=== PATIENT | female | born 1940 | race Caucasian/White ===

== ENCOUNTER 2017-11-09 10:18 | Emergency (ER) | payer OTHER, SELFPAY ==
[~2017-11-09] VITALS: Ht 165.1 cm; Wt 86.6 kg
[~2017-11-09 10:18] MED LIST: ACET325 PO; AMLO10 PO; AMLO5 PO; ASPI325 PO; ASPI81CH PO; ASPI81EC; AVANDAMET; CIPR500 PO; CLON.2 PO; CLON1 PO; CLOP75; ERGO400 PO; FERR325; FISH1000 PO; FURO20 PO; FURO40 PO; GABA100 PO; GLIM2 PO; HYDACE5 PO; INS70/30PN SC; INSUASPI; INSUASPI SUBQ; INSULANI; INSULANI SC; INSULANI SUBQ; IRBHYD150; ISOMON30 PO; ISOMON60ER; Isosorbide Mono30 MG PO; LEVEMIR FL100 UNIT/1 SC; LEVO750 PO; LOSA50 PO; LOSARTAN/HCTZ PO; LOSHYD PO; LOVA20 PO; METF500 PO; METO100 PO; METO100ER PO; METO50ER; NITRSPRAY SL; ONDA8 PO; POTCHL10ER PO; PRAV20 PO; PREG75 PO; Poly-Iron150 MG PO; SIMV40; SPIR25 PO; ST JOHNS WORT; UBID10 PO; XARELTO20 MG PO; [UNRECOGNIZED DRUG - OTHER] PO; hyzaar
[2017-11-09] MEDS ORDERED: PREG75 PO (11:42)
[2017-11-09] MEDS ORDERED: AURYXIA PO (11:42)
[2017-11-09 11:44] LABS: BASOPHILS ABSOLUTE AUTO 0.01 K/mm3 (0.00-0.23); BASOPHILS PERCENT AUTO 0 % (0-2); EOSINOPHILS ABSOLUTE AUTO 0.42 K/mm3 (0.00-0.68); EOSINOPHILS PERCENT AUTO 4 % (0-6); Hematocrit 34.2 % (33.0-51.0); Hemoglobin 11.2 g/dL (11.5-16.0); IMMATURE GRAN ABSOLUTE AUTO 0.03 K/mm3 (0.00-0.10); IMMATURE GRAN PERCENT AUTO 0 % (0-1); LYMPHOCYTES ABSOLUTE AUTO 1.06 K/mm3 (0.84-5.20); LYMPHOCYTES PERCENT AUTO 11 % (21-46); MONOCYTES ABSOLUTE AUTO 0.74 K/mm3 (0.16-1.47); MONOCYTES PERCENT AUTO 8 % (4-13); Mean Corpuscular HGB 27.6 pg (26.0-34.0); Mean Corpuscular HGB Conc 32.7 g/dL (31.5-36.5); Mean Corpuscular Volume 84 fL (80-100); Mean Platelet Volume 9.5 fL (9.1-12.4); NEUTROPHILS ABSOLUTE AUTO 7.49 K/mm3 (1.96-9.15); NEUTROPHILS PERCENT AUTO 77 % (41-73); Platelet Count 395 K/mm3 (150-400); RDW Coefficient Variation 13.5 % (11.7-14.2); RDW Standard Deviation 40.8 fL (35.1-46.3); Red Blood Cell Count 4.06 M/mm3 (3.80-5.20); White Blood Cell Count 9.75 K/mm3 (4.00-11.30)
[2017-11-09 11:55] LABS: Alanine Aminotransfer (ALT/SGP 12 U/L (12-78); Albumin, Blood 3.1 g/dL (3.4-5.0); Albumin/Globulin Ratio 0.7 (0.8-1.8); Alk Phos 127 U/L (50-136); Anion Gap 6 mmol/L (6-16); Aspartate Aminotrans (AST/SGOT 13 U/L (12-37); Bilirubin, Total 0.3 mg/dL (0.1-1.0); Blood Urea Nitrogen 35 mg/dL (8-24); Bun/Creatinine Ratio 37.7 (12.0-20.0); CO2, Blood 32 mmol/L (21-32); Calcium, Blood 8.8 mg/dL (8.5-10.1); Chloride, Blood 90 mmol/L (98-108); Creatinine, Blood 0.93 mg/dL (0.40-1.00); Globulin, Blood 4.4 g/dL (2.2-4.0); Glomerular Filtration Rate >60 (60-); Glucose, Blood 197 mg/dL (70-99); Sodium, Blood 128 mmol/L (136-145); Total Protein, Blood 7.5 g/dL (6.4-8.2)
[2018-09-09] MEDS ORDERED: DILT120 PO (15:50)
[2018-09-09] MEDS ORDERED: CLON.1 PO (15:50)
[2018-09-10] MEDS ORDERED: Norco 5-325 Ta1 EACH PO (18:24)
== END 2017-11-09 12:53 | disposition home or self-care (01) ==
LOC: ER 10:18
PROVIDERS: Emergency Medicine
DX: R93.5 Abnormal findings on diagnostic imaging of other abdominal regions, including retroperitoneum (principal); D64.9 Anemia, unspecified; E87.1 Hypo-osmolality and hyponatremia; E11.9 Type 2 diabetes mellitus without complications; I11.0 Hypertensive heart disease with heart failure; I50.9 Heart failure, unspecified; Z87.891 Personal history of nicotine dependence; Z88.5 Allergy status to narcotic agent; Z88.8 Allergy status to other drugs, medicaments and biological substances; Z79.899 Other long term (current) drug therapy; Z79.82 Long term (current) use of aspirin
CPT/HCPCS: 80053; 85025; 99283

== ENCOUNTER 2017-12-18 18:52 | Emergency (ER) | payer OTHER, SELFPAY ==
[~2017-12-18] VITALS: Ht 165.1 cm; Wt 85.7 kg
[~2017-12-18 18:52] MED LIST changes: -CLON.1 PO; -DILT120 PO; -Norco 5-325 Ta1 EACH PO; -VITAMIN B12-FO1 EACH PO
[2017-12-18] MEDS ORDERED: GLIM2 PO (19:25)
[2017-12-18] MEDS ORDERED: METF500 PO (19:26)
[2017-12-18] MEDS ORDERED: VITAMIN B12-FO1 EACH PO (19:27)
[2017-12-18 20:34] LABS: BASOPHILS ABSOLUTE AUTO 0.02 K/mm3 (0.00-0.23); BASOPHILS PERCENT AUTO 0 % (0-2); EOSINOPHILS ABSOLUTE AUTO 0.31 K/mm3 (0.00-0.68); EOSINOPHILS PERCENT AUTO 3 % (0-6); Hematocrit 31.4 % (33.0-51.0); Hemoglobin 10.3 g/dL (11.5-16.0); IMMATURE GRAN ABSOLUTE AUTO 0.05 K/mm3 (0.00-0.10); IMMATURE GRAN PERCENT AUTO 0 % (0-1); LYMPHOCYTES ABSOLUTE AUTO 1.04 K/mm3 (0.84-5.20); LYMPHOCYTES PERCENT AUTO 9 % (21-46); MONOCYTES ABSOLUTE AUTO 1.15 K/mm3 (0.16-1.47); MONOCYTES PERCENT AUTO 9 % (4-13); Mean Corpuscular HGB 27.2 pg (26.0-34.0); Mean Corpuscular HGB Conc 32.8 g/dL (31.5-36.5); Mean Corpuscular Volume 83 fL (80-100); Mean Platelet Volume 9.6 fL (9.1-12.4); NEUTROPHILS ABSOLUTE AUTO 9.71 K/mm3 (1.96-9.15); NEUTROPHILS PERCENT AUTO 79 % (41-73); Platelet Count 370 K/mm3 (150-400); RDW Coefficient Variation 13.4 % (11.7-14.2); RDW Standard Deviation 40.3 fL (35.1-46.3); Red Blood Cell Count 3.78 M/mm3 (3.80-5.20); White Blood Cell Count 12.28 K/mm3 (4.00-11.30)
[2017-12-18 20:38] LABS: Albumin, Blood 3.4 g/dL (3.4-5.0); Albumin/Globulin Ratio 0.8 (0.8-1.8); Bilirubin, Total 0.3 mg/dL (0.1-1.0); Bun/Creatinine Ratio 38.5 (12.0-20.0); Calcium, Blood 9.1 mg/dL (8.5-10.1); Creatinine, Blood 1.04 mg/dL (0.40-1.00); Globulin, Blood 4.4 g/dL (2.2-4.0); Potassium, Blood 3.8 mmol/L (3.5-5.5); Total Protein, Blood 7.8 g/dL (6.4-8.2)
[2017-12-18 20:45] LABS: International Normalized Ratio 1.38; Prothrombin Time Results 14.5 Sec (9.7-11.5)
[2018-09-09] MEDS ORDERED: DILT120 PO (15:50)
[2018-09-09] MEDS ORDERED: CLON.1 PO (15:50)
[2018-09-10] MEDS ORDERED: Norco 5-325 Ta1 EACH PO (18:24)
== END 2017-12-18 21:41 | disposition home or self-care (01) ==
LOC: ER 18:52
PROVIDERS: Nurse Practitioner Family
DX: D72.829 Elevated white blood cell count, unspecified (principal); Z88.5 Allergy status to narcotic agent; Z88.8 Allergy status to other drugs, medicaments and biological substances; Z79.899 Other long term (current) drug therapy; Z79.84 Long term (current) use of oral hypoglycemic drugs; Z79.82 Long term (current) use of aspirin; I11.0 Hypertensive heart disease with heart failure; I50.9 Heart failure, unspecified; E11.9 Type 2 diabetes mellitus without complications; Z87.891 Personal history of nicotine dependence
CPT/HCPCS: 36415; 71046; 80053; 83605; 85025; 85610; 87040; 99283

== ENCOUNTER → 2017-12-18 | Outpatient (CLI) | payer OTHER, SELFPAY ==
[~2017-12-18] MED LIST changes: +AURYXIA PO; +CLON.1 PO; +DILT120 PO; +Norco 5-325 Ta1 EACH PO; +VITAMIN B12-FO1 EACH PO
[2017-12-18 11:18] LABS: Source, Urine Voided
[2017-12-18 11:41] LABS: Bilirubin, Urine Neg (Neg); Blood, Urine Neg (Neg); Glucose Qualitative, Urine Neg (Neg); Ketones, Urine Neg (Neg); Leukocyte Esterase, Urine 1+ (Neg); Nitrite, Urine Neg (Neg); Protein, Urine Neg (Neg); Specific Gravity, Urine 1.005 (1.003-1.022); Urobilinogen, Urine NORM (Normal)
[2017-12-18 11:46] LABS: Color, Urine Yellow (P-Yellow)
[2017-12-18 11:47] LABS: Appearance, Urine Clear (Clear)
[2017-12-18 11:49] LABS: Bacteria Not Seen /hpf; Red Blood Cells, Urine Not Seen /hpf (0-2); Squamous Epithelial Cells Few /hpf (Few); White Blood Cells, Urine 0-2 /hpf (0-5)
== END ==
LOC: LAB SHORT 11:17
PROVIDERS: Internal Medicine
DX: R78.81 Bacteremia (principal)
CPT/HCPCS: 81001

== ENCOUNTER 2017-12-20 15:44 | Emergency (ER) | payer OTHER, SELFPAY ==
[~2017-12-20] VITALS: Ht 165.1 cm; Wt 85.7 kg
[~2017-12-20 15:44] MED LIST changes: +VITAMIN B12-FO1 EACH PO
[2017-12-20 16:47] LABS: BASOPHILS ABSOLUTE AUTO 0.03 K/mm3 (0.00-0.23); BASOPHILS PERCENT AUTO 0 % (0-2); EOSINOPHILS ABSOLUTE AUTO 0.31 K/mm3 (0.00-0.68); EOSINOPHILS PERCENT AUTO 3 % (0-6); Hematocrit 32.1 % (33.0-51.0); Hemoglobin 10.3 g/dL (11.5-16.0); IMMATURE GRAN ABSOLUTE AUTO 0.03 K/mm3 (0.00-0.10); IMMATURE GRAN PERCENT AUTO 0 % (0-1); LYMPHOCYTES ABSOLUTE AUTO 1.58 K/mm3 (0.84-5.20); LYMPHOCYTES PERCENT AUTO 16 % (21-46); MONOCYTES ABSOLUTE AUTO 0.78 K/mm3 (0.16-1.47); MONOCYTES PERCENT AUTO 8 % (4-13); Mean Corpuscular HGB 26.8 pg (26.0-34.0); Mean Corpuscular HGB Conc 32.1 g/dL (31.5-36.5); Mean Corpuscular Volume 84 fL (80-100); Mean Platelet Volume 9.3 fL (9.1-12.4); NEUTROPHILS PERCENT AUTO 72 % (41-73); Platelet Count 376 K/mm3 (150-400); RDW Coefficient Variation 13.5 % (11.7-14.2); RDW Standard Deviation 41.2 fL (35.1-46.3); Red Blood Cell Count 3.84 M/mm3 (3.80-5.20); White Blood Cell Count 9.73 K/mm3 (4.00-11.30)
[2018-09-09] MEDS ORDERED: DILT120 PO (15:50)
[2018-09-09] MEDS ORDERED: CLON.1 PO (15:50)
[2018-09-10] MEDS ORDERED: Norco 5-325 Ta1 EACH PO (18:24)
== END 2017-12-20 17:09 | disposition home or self-care (01) ==
LOC: ER 15:44
PROVIDERS: Internal Medicine
DX: E66.9 Obesity, unspecified (principal); Z59.0 Homelessness; Z88.5 Allergy status to narcotic agent; Z88.8 Allergy status to other drugs, medicaments and biological substances; Z79.899 Other long term (current) drug therapy; Z79.84 Long term (current) use of oral hypoglycemic drugs; Z79.82 Long term (current) use of aspirin; I11.0 Hypertensive heart disease with heart failure; I50.9 Heart failure, unspecified; E11.9 Type 2 diabetes mellitus without complications; Z87.891 Personal history of nicotine dependence
CPT/HCPCS: 36415; 85025; 99283

== ENCOUNTER → 2018-01-25 | Outpatient (CLI) | payer OTHER, SELFPAY ==
[~2018-01-25] MED LIST changes: +CLON.1 PO; +DILT120 PO; +Norco 5-325 Ta1 EACH PO
== END | disposition home or self-care (01) ==
LOC: LAB 11:50
DX: E53.8 Deficiency of other specified B group vitamins (principal)
CPT/HCPCS: 82607; 82746

== ENCOUNTER 2019-03-04 00:29 | Day surgery (SDC) | payer OTHER ==
[~2019-03-04 00:29] MED LIST changes: +GLIM4 PO; +INSULANPEN SC; +Novolog100 UNIT/2 SC; +PROBIOTIC1 EAC1 PO
== END 2019-03-04 22:39 | disposition home or self-care (01) ==
LOC: ATC 00:29
DX: I12.9 Hypertensive chronic kidney disease with stage 1 through stage 4 chronic kidney disease, or unspecified chronic kidney disease (principal); E11.22 Type 2 diabetes mellitus with diabetic chronic kidney disease; N18.3 Chronic kidney disease, stage 3 (moderate); D63.1 Anemia in chronic kidney disease; I25.10 Atherosclerotic heart disease of native coronary artery without angina pectoris; I25.2 Old myocardial infarction; I48.0 Paroxysmal atrial fibrillation; E78.5 Hyperlipidemia, unspecified; Z88.5 Allergy status to narcotic agent; Z88.8 Allergy status to other drugs, medicaments and biological substances; Z79.899 Other long term (current) drug therapy; Z79.82 Long term (current) use of aspirin; Z79.4 Long term (current) use of insulin
CPT/HCPCS: 36415; 36430; 86850; 86900; 86901; 86923; 96374; 96375; J1940; J2405; J7050; P9016

== ENCOUNTER → 2019-04-18 | Outpatient (CLI) | payer OTHER ==
[2019-04-18 16:18] LABS: Percent Saturation 15.8 % (15.0-50.0)
== END | disposition home or self-care (01) ==
LOC: LAB SHORT 15:44 → LAB 15:44
PROVIDERS: Internal Medicine Hematology & Oncology
DX: D50.0 Iron deficiency anemia secondary to blood loss (chronic) (principal)
CPT/HCPCS: 83540; 83550

== ENCOUNTER 2019-05-24 02:01 | Inpatient (IN) | payer OTHER ==
[~2019-05-24] VITALS: Ht 165.1 cm; Wt 78.2 kg
[2019-05-24] MEDS ORDERED: MAGNESIUM400 MG PO (02:30)
[2019-05-24 03:28] LABS: BASOPHILS ABSOLUTE AUTO 0.02 K/mm3 (0.00-0.23); BASOPHILS PERCENT AUTO 0 % (0-2); EOSINOPHILS ABSOLUTE AUTO 0.46 K/mm3 (0.00-0.68); EOSINOPHILS PERCENT AUTO 4 % (0-6); Hematocrit 27.2 % (33.0-51.0); Hemoglobin 8.6 g/dL (11.5-16.0); IMMATURE GRAN ABSOLUTE AUTO 0.05 K/mm3 (0.00-0.10); IMMATURE GRAN PERCENT AUTO 0 % (0-1); LYMPHOCYTES ABSOLUTE AUTO 1.21 K/mm3 (0.84-5.20); LYMPHOCYTES PERCENT AUTO 10 % (21-46); MONOCYTES ABSOLUTE AUTO 1.13 K/mm3 (0.16-1.47); MONOCYTES PERCENT AUTO 9 % (4-13); Mean Corpuscular HGB 28.1 pg (26.0-34.0); Mean Corpuscular HGB Conc 31.6 g/dL (31.5-36.5); Mean Corpuscular Volume 89 fL (80-100); Mean Platelet Volume 10.7 fL (9.1-12.4); NEUTROPHILS ABSOLUTE AUTO 9.48 K/mm3 (1.96-9.15); NEUTROPHILS PERCENT AUTO 77 % (41-73); Platelet Count 287 K/mm3 (150-400); RDW Coefficient Variation 15.2 % (11.7-14.2); RDW Standard Deviation 49.4 fL (35.1-46.3); Red Blood Cell Count 3.06 M/mm3 (3.80-5.20); White Blood Cell Count 12.35 K/mm3 (4.00-11.30)
[2019-05-24 03:42] LABS: Alanine Aminotransfer (ALT/SGP 13 U/L (12-78); Albumin, Blood 2.8 g/dL (3.4-5.0); Albumin/Globulin Ratio 0.8 (0.8-1.8); Alk Phos 120 U/L (50-136); Anion Gap 7 mmol/L (6-16); Aspartate Aminotrans (AST/SGOT 7 U/L (12-37); Bilirubin, Total 0.2 mg/dL (0.1-1.0); Blood Urea Nitrogen 42 mg/dL (8-24); Bun/Creatinine Ratio 39.6 (12.0-20.0); CO2, Blood 27 mmol/L (21-32); Chloride, Blood 96 mmol/L (98-108); Creatinine, Blood 1.06 mg/dL (0.40-1.00); Globulin, Blood 3.7 g/dL (2.2-4.0); Glomerular Filtration Rate 53 (60-); Glucose, Blood 213 mg/dL (70-99); Magnesium, Blood 1.7 mg/dL (1.6-2.4); Sodium, Blood 130 mmol/L (136-145); Total Protein, Blood 6.5 g/dL (6.4-8.2); Troponin I <0.015 ng/mL (0.000-0.040)
[2019-05-24 03:44] LABS: International Normalized Ratio 1.09; Prothrombin Time Results 11.5 Sec (9.7-11.5)
[2019-05-24 05:38] LABS: Source, Urine Clean Catch
[2019-05-24 05:39] LABS: Bilirubin, Urine Neg (Neg); Blood, Urine Neg (Neg); Glucose Qualitative, Urine 1+ (Neg); Ketones, Urine Neg (Neg); Leukocyte Esterase, Urine Neg (Neg); Nitrite, Urine Neg (Neg); Protein, Urine 2+ (Neg); Urobilinogen, Urine NORM (Normal)
[2019-05-24 05:44] LABS: Appearance, Urine Clear (Clear); Color, Urine Pale Yellow (P-Yellow)
[2019-05-24 05:46] LABS: Bacteria Few /hpf; Red Blood Cells, Urine Not Seen /hpf (0-2); Squamous Epithelial Cells Rare /hpf (Few); White Blood Cells, Urine 0-2 /hpf (0-5)
--- NOTE | 2019-05-24 07:39 | NUR ---
RECEIVED REPORT FROM ED RN MELVINA AT APPROX 0736. PT'S BP 202/82. MELVINA REPORTS THE PT WILL BE GIVEN PRN HYDRALAZINE PRIOR TO LEAVING THE ED. REPORT HANDED OFF TO MARK DEXTER TO ASSUME CARE OF PT ON MEDICAL FLOOR.
[2019-05-24 10:21] LABS: BASOPHILS ABSOLUTE AUTO 0.02 K/mm3 (0.00-0.23); BASOPHILS PERCENT AUTO 0 % (0-2); EOSINOPHILS ABSOLUTE AUTO 0.15 K/mm3 (0.00-0.68); EOSINOPHILS PERCENT AUTO 1 % (0-6); Hematocrit 28.7 % (33.0-51.0); IMMATURE GRAN ABSOLUTE AUTO 0.05 K/mm3 (0.00-0.10); IMMATURE GRAN PERCENT AUTO 0 % (0-1); LYMPHOCYTES ABSOLUTE AUTO 1.11 K/mm3 (0.84-5.20); LYMPHOCYTES PERCENT AUTO 9 % (21-46); MONOCYTES ABSOLUTE AUTO 0.85 K/mm3 (0.16-1.47); MONOCYTES PERCENT AUTO 7 % (4-13); Mean Corpuscular HGB 27.4 pg (26.0-34.0); Mean Corpuscular HGB Conc 31.4 g/dL (31.5-36.5); Mean Corpuscular Volume 88 fL (80-100); Mean Platelet Volume 10.5 fL (9.1-12.4); NEUTROPHILS ABSOLUTE AUTO 10.02 K/mm3 (1.96-9.15); NEUTROPHILS PERCENT AUTO 82 % (41-73); Platelet Count 265 K/mm3 (150-400); RDW Coefficient Variation 15.3 % (11.7-14.2); RDW Standard Deviation 49.4 fL (35.1-46.3); Red Blood Cell Count 3.28 M/mm3 (3.80-5.20)
[2019-05-24] MEDS ORDERED: Flonase 0.05% N16 GM (12:39)
--- NOTE | 2019-05-24 17:07 | NUR ---
REMOVED LAC FIELD START IV CATHETER INTACT SITE WNL. COBAN AND GAUZE APPLIED.
--- NOTE | 2019-05-24 18:48 | NUR ---
SHIFT SUMMARY OX4. STANDBY ASSIST TO BATHROOM. GOLYTELY IN PROGRESS FOR COLONOSCOPY TOMORROW AT APPROX 8:30AM. HX OF COLON RESECTION. PLEASANT COOPERATIVE. REPORTS "IT'S POSSIBLE I WILL NOT BE ABLE TO FINISH ALL OF THE PREP I JUST CAN'T TOLERATE THAT MUCH FLUID" REPORTED TO DR. CANCINO. QUITE HTN ON ARRIVAL FROM E.D. NOW VS WNL. DENIES ANY PAIN.
--- NOTE | 2019-05-25 00:54 | NUR ---
Pt unable to drink all of golitely prep. Pt very nauseated. Pt up to bathroom every 5-10 minutes. Pt having some blood with every stool but otherwise all liquid stools. Pt bp was 228/96 at beginning of shift. Gave pt her blood pressure meds and hydrazaline as ordered. BP recheck at 2200 was 190/62. notifed and no further orders recieved.
--- NOTE | 2019-05-25 03:50 | NUR ---
Shift summary: Pt undergoing a go-litely prep for a colonoscopy in am 2nd to GI bleed. Pt could only tolerate about 2/3 of golitely prep. Pt up to be often. Pt also bleeding each time she is up to BR. No fecal material in bowel movements noted. Pt c/o nausea and lightheadedness and states that she can't drink anymore of the bowel prep. Blood pressure high last pm. 228/96. After getting her pm meds and hydralazine, her bp was 190/62. notified and no further orders recieved.
[2019-05-25 05:03] LABS: Hematocrit 24.7 % (33.0-51.0); Hemoglobin 7.8 g/dL (11.5-16.0); Mean Corpuscular HGB 27.3 pg (26.0-34.0); Mean Corpuscular HGB Conc 31.6 g/dL (31.5-36.5); Mean Corpuscular Volume 86 fL (80-100); Mean Platelet Volume 10.3 fL (9.1-12.4); Platelet Count 255 K/mm3 (150-400); RDW Coefficient Variation 15.5 % (11.7-14.2); RDW Standard Deviation 48.8 fL (35.1-46.3); Red Blood Cell Count 2.86 M/mm3 (3.80-5.20); White Blood Cell Count 7.66 K/mm3 (4.00-11.30)
[2019-05-25 05:29] LABS: Anion Gap 7 mmol/L (6-16); Blood Urea Nitrogen 24 mg/dL (8-24); Bun/Creatinine Ratio 28.7 (12.0-20.0); CO2, Blood 28 mmol/L (21-32); Calcium, Blood 8.3 mg/dL (8.5-10.1); Chloride, Blood 105 mmol/L (98-108); Creatinine, Blood 0.84 mg/dL (0.40-1.00); Glomerular Filtration Rate >60 (60-); Glucose, Blood 66 mg/dL (70-99); Potassium, Blood 3.4 mmol/L (3.5-5.5)
[2019-05-25 05:49] LABS: Sodium, Blood 140 mmol/L (136-145)
--- NOTE | 2019-05-25 07:16 | NUR ---
Shift summary. See prior note. Around 0545 pt started c/o chest pain at a level 5 out of 10. Pt very anxious and stated that the pain was going up her neck.O2 on at 4 liters. BP was 148/50 after getting hydrazaline. Bp before 215/65. Dr Reyes called. Blood sugar was 66. Gave pt 1/2 amp D50. Ekg obtained. Changes noted and MD notifed. Pt given one nitro tab with some relief. Blood ordered for transfusion. Nitro paste applied to chest. Trop ordered and aspirin 325 also given. Report given to oncoming nurse. Pt scheduled for colonoscopy at 0900. Bowel movements last pm were all bloody. H & H 7 and 24 this am.
--- NOTE | 2019-05-25 07:21 | NUR ---
SPOKE WITH DR. CAICEDO REPORTED PT'S CP, HYPOGLYCEMIA AND VS. NEW ORDERS RECEIVED. DR. CAICEDO TO SEE PATIENT AT BEDSIDE SHORTLY.
--- NOTE | 2019-05-25 07:36 | NUR ---
SPOKE WITH DR. LEYVA ABOUT PT'S CP, H&H AND OVERALL CONDITION. NEW ORDERS RECEIVED FOR CARDIAC CONSULT AND TO POSTPONE COLONOSCOPY.
--- NOTE | 2019-05-25 07:59 | NUR ---
PRBC'S IN PROGRESS. PT REPORTS CP IMPROVED FROM 05/21 TO NOW 5/10 NITROPASTE TO CHESTWALL. 2 EPISODES OF BLOOD TINGED WATERY BM THIS A.M. C/O LOWER BACK PAIN. MEDICATED WITH FENTYNL PT STATES "UNABLE TO TOLERATE IV MORPHINE".
--- NOTE | 2019-05-25 08:08 | NUR ---
PAGED DR. PATEL
--- NOTE | 2019-05-25 09:59 | NUR ---
TRANSFERRED PT TO ICU VIA STRETCHER. AWAKE ALERT OX4; REPORT GIVEN TO MARK ARNETT
--- NOTE | 2019-05-25 12:09 | NUR ---
0915: PT TO ICU 5 AT THIS TIME, A&OX4, TRANSFERRED FROM BED TO BED WITH SBA, GAIT STEADY. CARDIAC MONITORING INITIATED, AFIB WITH PVC'S, TACHYCARDIC, BP ELEVATED. PT DENIES CHEST PAIN/PRESSURE AND SOB, SPO2 100% 2L/NC. PRBC'S INFUSING PER ORDERS, PT AFEBRILE. NITRO PASTE TO LEFT CHEST. ASSESSMENT COMPLETED. 1030: PT UP TO C WITH SBA, VOIDING WITHOUT DIFFICULTY. SMALL AMOUNT OF MENG BLOOD PRESENT IN COMMODE, NO CLOTS NOTED. MEDICATIONS ADMINISTERED PER ORDERS. DR. CHACKO AT BEDSIDE. 1100: ECHO COMPLETED, PRBC INFUSION COMPLETED WITHOUT S/SX TRANSFUSION REACTION. LS DIM WITH RIGHT SIDED WHEEZES, NO CRACKLES NOTED, PT DENIES SOB AND CP/PAIN. HR REMAINS TACHYCARDIC, BP ELEVATED. 1130: PT MEDICATED WITH TYLENOL FOR 3/10 MID UPPER BACK PAIN. PT'S SISTER AT BEDSIDE. 1210: PT C/O 3/10 CP, HR 130-150'S AFIB WITH PVC'S. DR. CHACKO NOTIFIED, NEW ORDERS RECEIVED. PT ASLEEP UPON RETURN TO ROOM. CLEAR DIET OK PER DR. LEYVA AND DR. CHACKO. BP WNL.
--- NOTE | 2019-05-25 12:20 | NUR ---
Echocardiogram completed.
--- NOTE | 2019-05-25 12:38 | NUR ---
AMIODARONE INFUSING PER ORDERS, HR 113 AFTER BOLUS, PT DENIES CHEST PRESSURE. SECOND IV PLACED IN LEFT HAND. PT ASSISTED TO BSC WITHOUT DIFICULTY, SCANT AMOUNT OF BLOOD FROM RECTUM. APPETITE POOR, REFUSED MOST OF LUNCH TRAY. PT DENIES ABD PAIN/NAUSEA.
--- NOTE | 2019-05-25 13:13 | NUR ---
LATE ENTRY: NITRO PASTE REMOVED AT [address] PATEL.
--- NOTE | 2019-05-25 13:40 | NUR ---
PT CONVERTED TO NSR WITH ST DEPRESSION AT 1319. PT SLEEPING, HR 60'S, OTHER VSS.
[2019-05-25 14:03] LABS: Hemoglobin 8.9 g/dL (11.5-16.0)
--- NOTE | 2019-05-25 17:56 | NUR ---
1440: PT RESTING IN BED WITH EYES CLOSED, VSS, REMAINS IN NSR 60'S, BP WNL. CRITICAL TROPONIN RECEIVED, COMMUNICATED TO DR. PATEL, NO NEW ORDERS AT THIS TIME, INSTRUCTIONS TO CONTINUE AMIODARONE PER PROTOCOL. 1530: DR. LEYVA AT BEDSIDE, AWARE OF TROPONIN AND DR. PATEL'S DECISION TO HOLD HEPARIN, NEW ORDERS RECEIVED FOR NPO AFTER BREAKFAST TOMORROW AM AND TO HOLD ALL FURTHER BOWEL PREP. PT AWAKE, DENIES CHEST PAIN/DISCOMFORT, VSS. PT AWARE OF PLAN. 1730: PT WOKEN FOR MEDS AND DINNER, DENIES C/O, VS REMAIN STABLE WITH HR 60'S NSR. AMIODARONE INFUSING AT 1MG/HR PER ORDERS. PT SITTING UP IN BED EATING, DENIES NEEDS.
--- NOTE | 2019-05-25 18:49 | NUR ---
AMIODARONE INFUSING AT 0.5MG/HR PER DR. PATEL, PT RESTING IN BED WITH NO C/O. HR 60'S NSR, PT DENIES CHEST PAIN/PRESSURE/DISCOMFORT AND SOB. NO BLOODY STOOLS TODAY, SCANT MENG BLOOD FROM RECTUM X2 WHEN PT WAS UP TO VOID. PT DENIES DIZZINESS OR LIGHTHEADEDNESS, VSS. REPORT TO ONCOMING SHIFT. PT REMAINS ON CLEAR LIQ DIET, TOLERATING WELL.
--- NOTE | 2019-05-25 19:37 | NUR ---
ASSUMED CARE RECIEVED REPORT FROM MELQUIADES. PT IS ALERT AND ORIENTED X 4. DENIES CP, SOB, N/T, NAUSEA, AND ANY PAIN IN GENERAL. PT IS IN NSR, AND IS RECIEVING AMIO GTTP AT 0.5MG/MIN. BED IS LOW AND LOCKED. CALL LIGHT WITHIN REACH.
--- NOTE | 2019-05-26 07:53 | NUR ---
SHIFT SUMMARY NO ACUTE EVENTS OVERNIGHT. PT SLEPT ASLEEP MAJORITY OF NIGHT, GOT UP TO BATHROOM WITH 1+ ASSIST TWICE THROUGHOUT NIGHT. VOIDED INTO TOILET, SLIGHT DARK RED/ORANGE TINT TO URINE. PT IS TO HAVE ENDOSCOPY TODAY. NO BOWEL PREP NEEDED OVERNIGHT (COMPLETED ONCE ALREADY) AND PT IS TO BE NPO PRIOR TO PROCEDURE (WAS ON CLEAR LIQUIDS THROUGHOUT NIGHT). AMIODARONE GTTP REMAINS INFUSING AT 0.5MG/MIN; PT REMAINS IN NSR. BED IS LOW AND LOCKED, CALL LIGHT WITHIN REACH.
--- NOTE | 2019-05-26 08:30 | NUR ---
ASSESSMENT- PT AWAKE, ALERT, COOPERATIVE. STATES HAVING SCOPE TODAY. EXPLAINED PLAN OF CARE. HYPERTENSIVE, DENIES ANY CP OR SOB. RESPIRATIONS UNLABORED. AMIODARONE GTT AT 0.5 MG/MIN. NSR NO ECTOPY. LUNGS CLEAR. NO N/V. 2 PIV INTACT.
[2019-05-26 08:40] LABS: Hematocrit 27.8 % (33.0-51.0); Hemoglobin 8.8 g/dL (11.5-16.0); Mean Corpuscular HGB 27.8 pg (26.0-34.0); Mean Corpuscular HGB Conc 31.7 g/dL (31.5-36.5); Mean Corpuscular Volume 88 fL (80-100); Mean Platelet Volume 9.7 fL (9.1-12.4); Platelet Count 252 K/mm3 (150-400); RDW Coefficient Variation 15.3 % (11.7-14.2); RDW Standard Deviation 49.5 fL (35.1-46.3); Red Blood Cell Count 3.17 M/mm3 (3.80-5.20); White Blood Cell Count 8.85 K/mm3 (4.00-11.30)
--- NOTE | 2019-05-26 09:00 | NUR ---
ASSISTED UP TO TOILET-TOLERATED WELL, USES WALKER FOR STABILITY AND STAND BY ASSIST. AM CARES. NO STOOL. HAD CLEAR LIQUID CHICKEN BROTH THIS AM. NPO NOW.
[2019-05-26 09:08] LABS: Bun/Creatinine Ratio 20.8 (12.0-20.0); Calcium, Blood 8.3 mg/dL (8.5-10.1); Creatinine, Blood 0.96 mg/dL (0.40-1.00); Potassium, Blood 3.8 mmol/L (3.5-5.5)
[2019-05-26 09:13] LABS: Troponin I 5.95 ng/mL (0.000-0.040)
--- NOTE | 2019-05-26 10:15 | NUR ---
DR. LEYVA CALLED-NOTIFIED THAT DR. PATEL OK WITH PROCEDURE. HE WILL DISCUSS WITH ANESTHESIA. OK FOR CLEAR LIQUID LUNCH, NPO AFTER. PT DENIES COMPLAINTS
--- NOTE | 2019-05-26 10:50 | NUR ---
PT RESTING WITHOUT COMPLAINTS. BP ELEVATED, HAD RECEIVED MEDS FOR BLOOD PRESSURE, WILL MONITOR
--- NOTE | 2019-05-26 13:19 | NUR ---
PT UP TO BATHROOM-VOIDED 450 CC AFTER DOSE OF IV LASIX. C/O TENDERNESS LEFT HAND-IV D/C, HEATING PAD FOR COMFORT, NO SWELLING OR INFILTRATION NOTED. BP WITHIN 10 MMHG LEFT ARM AND RIGHT ARM. USING LEFT WRIST FOR BP, UNABLE TO TOLERATE RIGHT UPPER ARM MEASUREMENTS AND NEW IV SITE RFA.
--- NOTE | 2019-05-26 14:52 | NUR ---
Pal Spiritual Care inital visit: Per admit trigger, I met with Ольга to offer prayer and encouragement. She was emotionally distant and said very little to me. She denied prayer and appeared bewildered that a coin machine collector was present. I gently explained that I try to see every ICU pt, and this calmed her. She believes she is getting better and denied concerns. I will remain available.
--- NOTE | 2019-05-26 16:01 | NUR ---
DR. LEYVA HERE-PLANS FOR UPPER AND LOWER SCOPE IN A.M. AT 0700. PT ALERT, COOPERATIVE, DENIES ANY CHEST PAIN OR SOB. VISITING WITH FAMILY. NO DISTRESS PALLIATIVE CARE RN HERE. BP IMPROVED FROM THIS A.M. HAS USED HEATING PAD FOR DISCOMFORT FROM LEFT HAND WITH IMPROVEMENT OF TENDERNESS.
--- NOTE | 2019-05-26 16:03 | NUR ---
Initial Visit: Palliative Care Consult for Advanced Care Planning. Pt is A&O and denies pain at this time. Pt denies dyspnea but reports anxiety due to anticipation of procedure. Educated Pt on distraction techniques to help manage anxiety. Family present during visit. Pt reports living with her and is independent of her ADLs. Listened as she describes events leading up to current hospital stay. Encouraged Pt to ask questions and express concerns regarding chronic illnesses and disease process. Pt reports no concerns. Educated Pt on the importance of having routine conversations with PCP and secure software assessor regarding heart disease in order to plan accordingly. At this point in visit Gastro MD in to visit. Plan if for procedure tomorrow. This RN ended visit to allow Pt the oppertunity to process information. Spoke with bedside nurse prior to visit and she reports no concerns at this time. Palliative Care will remain available.
--- NOTE | 2019-05-26 18:15 | NUR ---
PT UP TO CHAIR WITHOUT PROBLEMS. UPDATED WITH PLAN-AGREEABLE. TOOK CLEAR LIQUIDS. NO N/V, DENIES ANY PAIN OR SOB. VSS. NO S/S BLEEDING. PIV X 2 INTACT. STATES LEFT HAND LESS TENDER, NO SWELLING, SMALL AMOUNT BRUISING BOTH HANDS, SKIN THIN. VOIDING-GOOD URINE OUTPUT. REMAINS NSR. AMIODARONE GTT CONTINUES AT 0.5 MG/MIN PER ORDERS
--- NOTE | 2019-05-26 22:46 | NUR ---
PATIENT RESTING QUIETLY UP TO TOILET WITH MIN ASSIST. NO COMPLAINTS AT THIS TIME. AMIODARONE DRIP CONTINUES AT 0.5 UNTIL FURTHER ORDERS.
[2019-05-27 03:43] LABS: Bun/Creatinine Ratio 17.2 (12.0-20.0); Calcium, Blood 8.3 mg/dL (8.5-10.1); Creatinine, Blood 0.99 mg/dL (0.40-1.00); Magnesium, Blood 1.7 mg/dL (1.6-2.4)
--- NOTE | 2019-05-27 04:32 | NUR ---
PATIENT GLUCOSE ON AM LAB 51. SNACK OF CLEAR YELLOW JELLO AND A YELLOW JELLO + RECHECK GLUCOSE 95, PATIENT VERBALIZED THAT THIS IS LOW FOR HER ALSO, PATIENT TAKING A SMALL AMT OF HONEY. PATIENT AWAKE AND VERBALIZED NOT FEELING LIKE SHE IS LOW
--- NOTE | 2019-05-27 05:39 | NUR ---
SUMMARY PATIENT SLEEPING OFF AND ON T/O NIGHT. AMB TO TOILET WITH MIN ASSIST. PATIENT HAD A SMALL AMT OF BRIGHT RED ON TOILET PAPER FROM RECTUM. H&H REMAINING STABLE. GLUCOSE LOW THIS AM RESOLVING WITH CLEAR LIQUID SNACK. AMIODARONE DRIP CONTINUES AT 0.5, REMAINS IN SINUS RHYTHM. PLAN FOR UPPER AND LOWER SCOPE TODAY.
--- NOTE | 2019-05-27 06:45 | NUR ---
DAY SURGERY IN TO PREP PATIENT FOR SCOPE
--- NOTE | 2019-05-27 07:14 | NUR ---
ASSUMED CARE OF PT AT THIS TIME PT. CURRENTLY ALERT AND ORIENTED. PT CURRENTLY BEING PREPPED BY DAY SURGERY NURSES FOR UPPER AND LOWER SCOPE. PT. VSS AT THIS TIME.
--- NOTE | 2019-05-27 07:18 | NUR ---
05/27/19 0718 Laura Krishnamurthy History, Chart, Medications and Allergies reviewed before start of procedure.MONITOR INTACT WITH CONTINUOUS PULSE OXIMETRY AND INTERMITTENT BP.3-LEAD EKG REVIEWED WITH PHYSICIAN PRIOR TO START OF PROCEDURE.O2 VIA N/C INTACT THROUGHOUT SEDATION/PROCEDURE. MODERATE SEDATION DUE TO HEALTH HISTRORY
--- NOTE | 2019-05-27 08:34 | NUR ---
PROCEDURE COMPLETED PT. ALERT AND ORIENTED. AM CARE PROVIDED. BREAKFAST TRAY ORDERED PER DR. LEYVA. PER DR. LEYVA NO ACUTE BLEEDING NOTED DURING PROCEDURE. VSS.
--- NOTE | 2019-05-27 12:21 | NUR ---
DR. PATEL/DR. CALEB PATEL ROUNDED ON PT. STATES HE WILL SWITCH PT TO PO AMIODARONE AND SHE IS OK FOR DISCHARGE FROM CARDIOLOGY STANDPOINT. HE WOULD LIKE HER TO FOLLOW UP IN HIS OFFICE IN A WEEK. DR. ELLIS UPDATED AND WILL WRITE DISCHARGE ORDERS.
[2019-05-27] MEDS ORDERED: CLON.1 PO (12:50)
[2019-05-27] MEDS ORDERED: Isosorbide Mono30 MG PO (12:51)
[2019-05-27] MEDS ORDERED: Amiodarone HCl200 MG PO (12:51)
[2019-05-27 12:52] LABS: BASOPHILS ABSOLUTE AUTO 0.02 K/mm3 (0.00-0.23); BASOPHILS PERCENT AUTO 0 % (0-2); EOSINOPHILS ABSOLUTE AUTO 0.09 K/mm3 (0.00-0.68); EOSINOPHILS PERCENT AUTO 1 % (0-6); Hematocrit 30.9 % (33.0-51.0); Hemoglobin 9.7 g/dL (11.5-16.0); IMMATURE GRAN ABSOLUTE AUTO 0.03 K/mm3 (0.00-0.10); IMMATURE GRAN PERCENT AUTO 0 % (0-1); LYMPHOCYTES ABSOLUTE AUTO 0.45 K/mm3 (0.84-5.20); LYMPHOCYTES PERCENT AUTO 5 % (21-46); MONOCYTES ABSOLUTE AUTO 0.32 K/mm3 (0.16-1.47); MONOCYTES PERCENT AUTO 3 % (4-13); Mean Corpuscular HGB 28.1 pg (26.0-34.0); Mean Corpuscular HGB Conc 31.4 g/dL (31.5-36.5); Mean Corpuscular Volume 90 fL (80-100); NEUTROPHILS ABSOLUTE AUTO 8.39 K/mm3 (1.96-9.15); NEUTROPHILS PERCENT AUTO 90 % (41-73); Platelet Count 278 K/mm3 (150-400); RDW Coefficient Variation 14.9 % (11.7-14.2); RDW Standard Deviation 49.3 fL (35.1-46.3); Red Blood Cell Count 3.45 M/mm3 (3.80-5.20)
[2019-05-27] MEDS ORDERED: AMLO5 PO (13:01)
[2019-05-27] MEDS ORDERED: CLOP75 PO (13:02)
--- NOTE | 2019-05-27 15:24 | NUR ---
DISCHARGE PT. DISCHARGE INSTRUCTIONS REVIEWED. MEDICATION CHANGES REVIEWED. NO FURTHER QUESTIONS AT THIS TIME. PT. VSS. ASSISTED PT TO GET DRESSED AT THIS TIME. PT. USING WALKER TO STAND, REPORTS FEELING WEAK BUT REPORTS FEELING STEADY ON HER FEET. AWAITING FOR RIDE HOME. FOLLOW UP APPOINTMENTS DISCUSSED WITH PT. BELONGINGS RETURNED. IVS DC'D; CATHETERS INTACT.
--- NOTE | 2019-05-27 15:42 | NUR ---
PT. HERE TO DRIVE PT HOME.
== END 2019-05-27 15:30 | disposition home or self-care (01) | DRG 378 ==
LOC: ER 02:01 → MEDS 02:02 → ICUE 02:02 → MEDS 02:02 → ICUE 02:02 → MEDS 08:58 → ICUE 05-25 09:15
PROVIDERS: Emergency Medicine; Internal Medicine; Internal Medicine Cardiovascular Disease; Internal Medicine Gastroenterology; ADMIT Hospitalist
PROC: 30233N1 Transfusion of Nonautologous Red Blood Cells into Peripheral Vein, Percutaneous Approach (ICD-10-PCS; principal; 2019-05-25)
PROC: 0DB68ZX Excision of Stomach, Via Natural or Artificial Opening Endoscopic, Diagnostic (ICD-10-PCS; 2019-05-27 07:00)
PROC: 0DBH8ZX Excision of Cecum, Via Natural or Artificial Opening Endoscopic, Diagnostic (ICD-10-PCS; 2019-05-27 07:00)
PROC: 0DBN8ZX Excision of Sigmoid Colon, Via Natural or Artificial Opening Endoscopic, Diagnostic (ICD-10-PCS; 2019-05-27 07:00)
DX: K92.2 Gastrointestinal hemorrhage, unspecified (principal); D62 Acute posthemorrhagic anemia; I25.110 Atherosclerotic heart disease of native coronary artery with unstable angina pectoris; E87.1 Hypo-osmolality and hyponatremia; I13.0 Hypertensive heart and chronic kidney disease with heart failure and stage 1 through stage 4 chronic kidney disease, or unspecified chronic kidney disease; I50.22 Chronic systolic (congestive) heart failure; K52.9 Noninfective gastroenteritis and colitis, unspecified; K25.9 Gastric ulcer, unspecified as acute or chronic, without hemorrhage or perforation; K57.30 Diverticulosis of large intestine without perforation or abscess without bleeding; D50.9 Iron deficiency anemia, unspecified; I70.1 Atherosclerosis of renal artery; E11.22 Type 2 diabetes mellitus with diabetic chronic kidney disease; N18.3 Chronic kidney disease, stage 3 (moderate); E78.5 Hyperlipidemia, unspecified; I25.2 Old myocardial infarction; I48.0 Paroxysmal atrial fibrillation; Z79.82 Long term (current) use of aspirin; Z79.4 Long term (current) use of insulin; Z86.73 Personal history of transient ischemic attack (TIA), and cerebral infarction without residual deficits; Z98.61 Coronary angioplasty status; Z87.891 Personal history of nicotine dependence; Z79.899 Other long term (current) drug therapy; Z79.01 Long term (current) use of anticoagulants; Z88.5 Allergy status to narcotic agent; Z88.8 Allergy status to other drugs, medicaments and biological substances
CPT/HCPCS: 36415; 36430; 80048; 80053; 81001; 82947; 83690; 83735; 84484; 85014; 85018; 85025; 85027; 85610; 86850; 86900; 86901; 86923; 88305; 88342; 93005; 93010; 93306; 96365; 96366; 96375; 96376; 99284-25; A9270; C9113; G0378; J0171; J0282; J0360; J1940; J2250; J2405; J3010; J3480; J7030; J7050; J7060; J7120; J7799; P9016

== ENCOUNTER 2021-06-21 08:57 | Day surgery (SDC) | payer OTHER ==
[~2021-06-21] VITALS: Ht 165.1 cm; Wt 85.0 kg
[~2021-06-21 08:57] MED LIST changes: +Amiodarone HCl200 MG PO; +Aspir 8181 MG PO; +CLOP75 PO; +Flonase 0.05% N16 GM; +MAGNESIUM400 MG PO
[2021-06-21] MEDS ORDERED: TIOT18 INH (09:12)
[2021-06-21] MEDS ORDERED: ATROVENT HFA12.9 GM INH (09:13)
[2021-06-21] MEDS ORDERED: ERGO50000 PO (09:13)
--- NOTE | 2021-06-21 15:18 | NUR ---
PT BECAME DIAPHORETIC AND STATED SHE FELT AWFUL. THE PT BECAME HYPOTENSIVE. DR. GRAHAM MADE AWARE AND CAME TO ASSESS THE PATIENT. CT WAS ORDERED AND FLUIDS WIDE OPEN. DR. GRAHAM ORERED A STRAIGHT CATH TO BE PERFORMED. STRAIGHT CATH WAS PERFOMRED IN A STERILE MATTER AND 700CC'S OF CLEAR YELLOW URINE WAS VOIDED. WILL CONTINUE TO MONITOR.
--- NOTE | 2021-06-21 16:24 | NUR ---
PT BACK FROM CT. THIS NURSE WENT WITH PT TO CT. PT'S VITALS HAVE STABALIZED, THE PT'S COLOR IS BACK AND THE PT STATES SHE FEELS BETTER.
--- NOTE | 2021-06-21 17:30 | NUR ---
DISCHARGE PT REMAINED A&OX3 DURING RECOVERY. PT'W ELEVATED BLOOD PRESSURE WAS REVIEWED WITH DR. GRAHAM. DR. GRAHAM STATED- "HAVE THE PT GO HOME AND TAKE HOME MEDS RIGHT AWAY AND MEDICATIONS WILL BE REVIEWED AT FOLLOW-UP APPOINTMENT." RIGHT GROIN SITE REMAINS UNCHANGED FROM LAST HOLD FROM HEMATOMA. BRUISE NOTED FROM OUTTER THIGH TO INNER THIGH.-DRESSING CDI-SOFT SLIGHT TENDERNESS TO TOUCH. PT BECAME NAUSEOUS-NAUSIA RELIEVED BY SALTINES AND WATER. PT ABLE TO DRESS SELF WITH SOME ASSITANCE. IV DC'D WITH ARIANNE IN TACT. DISCHARGE PAPERWORK GONE OVER WITH PT AND SON-N-LAW. PT AND SON-N-LAW VERBALLY STATED THE UNDERSTANDING OF THE DISCHARGE PAPERWORK AND VERBALLY DENIED ANY QUESTIONS AT TIME. PT WHEELD OUT BY THIS NURSE.
== END 2021-06-21 23:31 | disposition home or self-care (01) ==
LOC: MHTC 08:57
DX: I70.1 Atherosclerosis of renal artery (principal); I10 Essential (primary) hypertension; K55.9 Vascular disorder of intestine, unspecified; I11.0 Hypertensive heart disease with heart failure; I50.9 Heart failure, unspecified; E11.9 Type 2 diabetes mellitus without complications; Z88.8 Allergy status to other drugs, medicaments and biological substances
CPT/HCPCS: 36252; 37221; 37236; 74176; 75726; 76937; 82947; 85347; 99152; 99153; C1760; C1769; C1876; C1887; C1894; C2623; J2250; J3010; J7030; Q9967

== ENCOUNTER 2021-06-28 06:14 | Emergency (ER) | payer OTHER ==
[~2021-06-28] VITALS: Ht 165.1 cm; Wt 83.9 kg
[~2021-06-28 06:14] MED LIST changes: +ATROVENT HFA12.9 GM INH; +ERGO50000 PO; +TIOT18 INH
[2021-06-28 06:48] LABS: BASOPHILS ABSOLUTE AUTO 0.03 K/mm3 (0.00-0.23); BASOPHILS PERCENT AUTO 0 % (0-2); EOSINOPHILS ABSOLUTE AUTO 0.56 K/mm3 (0.00-0.68); EOSINOPHILS PERCENT AUTO 6 % (0-6); Hemoglobin 11.8 g/dL (11.5-16.0); IMMATURE GRAN ABSOLUTE AUTO 0.02 K/mm3 (0.00-0.10); IMMATURE GRAN PERCENT AUTO 0 % (0-1); LYMPHOCYTES ABSOLUTE AUTO 1.24 K/mm3 (0.84-5.20); LYMPHOCYTES PERCENT AUTO 13 % (21-46); MONOCYTES ABSOLUTE AUTO 0.97 K/mm3 (0.16-1.47); MONOCYTES PERCENT AUTO 10 % (4-13); Mean Corpuscular HGB 28.2 pg (26.0-34.0); Mean Corpuscular HGB Conc 33.7 g/dL (31.5-36.5); Mean Corpuscular Volume 84 fL (80-100); Mean Platelet Volume 9.8 fL (9.1-12.4); NEUTROPHILS ABSOLUTE AUTO 7.03 K/mm3 (1.96-9.15); NEUTROPHILS PERCENT AUTO 71 % (41-73); Platelet Count 370 K/mm3 (150-400); RDW Coefficient Variation 14.1 % (11.7-14.2); RDW Standard Deviation 42.6 fL (35.1-46.3); Red Blood Cell Count 4.19 M/mm3 (3.80-5.20); White Blood Cell Count 9.85 K/mm3 (4.00-11.30)
[2021-06-28 06:49] LABS: Source, Urine Clean Catch
[2021-06-28 06:57] LABS: Bilirubin, Urine Neg (Neg); Blood, Urine 2+ (Neg); Glucose Qualitative, Urine 4+ (Neg); Ketones, Urine Neg (Neg); Leukocyte Esterase, Urine 3+ (Neg); Nitrite, Urine Neg (Neg); Protein, Urine 3+ (Neg); Specific Gravity, Urine 1.005 (1.003-1.022); Urobilinogen, Urine NORM (Normal)
[2021-06-28 07:08] LABS: Alanine Aminotransfer (ALT/SGP 23 U/L (12-78); Albumin/Globulin Ratio 0.7 (0.8-1.8); Alk Phos 123 U/L (50-136); Anion Gap 7 mmol/L (6-16); Aspartate Aminotrans (AST/SGOT 18 U/L (12-37); Bilirubin, Total 0.7 mg/dL (0.1-1.0); Blood Urea Nitrogen 21 mg/dL (8-24); Bun/Creatinine Ratio 26.5 (12.0-20.0); CO2, Blood 27 mmol/L (21-32); Calcium, Blood 8.6 mg/dL (8.5-10.1); Chloride, Blood 92 mmol/L (98-108); Creatinine, Blood 0.79 mg/dL (0.40-1.00); Globulin, Blood 4.3 g/dL (2.2-4.0); Glomerular Filtration Rate >60 (60-); Glucose, Blood 272 mg/dL (70-99); Potassium, Blood 3.8 mmol/L (3.5-5.5); Sodium, Blood 126 mmol/L (136-145); Total Protein, Blood 7.3 g/dL (6.4-8.2); Troponin I <0.015 ng/mL (0.000-0.040)
[2021-06-28 07:16] LABS: Appearance, Urine Clear (Clear); Color, Urine Yellow (P-Yellow)
[2021-06-28 07:19] LABS: Bacteria Many /hpf; White Blood Cells, Urine 25-50 /hpf (0-5)
[2021-06-28 07:20] LABS: Red Blood Cells, Urine 0-2 /hpf (0-2); Squamous Epithelial Cells Rare /hpf (Few); Transitional Epithelial Cells Rare /hpf (0-Rare)
[2021-06-28] MEDS ORDERED: METF500 PO (07:40)
[2021-06-28] MEDS ORDERED: CEFP200 PO (08:32)
[2021-06-28] MEDS ORDERED: ONDA4ODT MM (08:32)
== END 2021-06-28 10:44 | disposition home or self-care (01) ==
LOC: ER 06:14
PROVIDERS: Emergency Medicine
DX: N39.0 Urinary tract infection, site not specified (principal); E87.1 Hypo-osmolality and hyponatremia; R11.2 Nausea with vomiting, unspecified; B95.1 Streptococcus, group B, as the cause of diseases classified elsewhere; I13.0 Hypertensive heart and chronic kidney disease with heart failure and stage 1 through stage 4 chronic kidney disease, or unspecified chronic kidney disease; N18.30 Chronic kidney disease, stage 3 unspecified; I50.9 Heart failure, unspecified; E86.0 Dehydration; E11.22 Type 2 diabetes mellitus with diabetic chronic kidney disease; Z88.8 Allergy status to other drugs, medicaments and biological substances; Z88.5 Allergy status to narcotic agent; Z79.899 Other long term (current) drug therapy; Z79.02 Long term (current) use of antithrombotics/antiplatelets; Z79.4 Long term (current) use of insulin; Z79.82 Long term (current) use of aspirin; Z96.0 Presence of urogenital implants
CPT/HCPCS: 80053; 81001; 84484; 85025; 87086; 87147; 93005; 93010; 99285-25; J0696; J2405; J7030

== ENCOUNTER 2021-08-15 00:29 | Inpatient (IN) | payer OTHER ==
[~2021-08-15] VITALS: Ht 165.1 cm; Wt 79.0 kg
[~2021-08-15 00:29] MED LIST changes: +CEFP200 PO; +ONDA4ODT MM
[2021-08-15 01:00] LABS: Calcium, Ionized (POC) 1.11 mmol/L (1.10-1.46); Chloride (POC) 95 mmol/L (98-108); Creatinine (POC) 0.8 mg/dL (0.6-1.0); Glucose (ISTAT POC) 179 mg/dL (70-99); Hemoglobin (POC) 11.2 g/dL (12.0-16.0); Potassium (POC) 2.6 mmol/L (3.5-5.5); Sodium (POC) 135 mmol/L (135-148); Total CO2 (POC) 26 mmol/L (21-32)
[2021-08-15 01:04] LABS: Hematocrit 34.4 % (33.0-51.0); Hemoglobin 11.4 g/dL (11.5-16.0); Mean Corpuscular HGB 29.1 pg (26.0-34.0); Mean Corpuscular HGB Conc 33.1 g/dL (31.5-36.5); Mean Corpuscular Volume 88 fL (80-100); Mean Platelet Volume 9.8 fL (9.1-12.4); Platelet Count 257 K/mm3 (150-400); RDW Coefficient Variation 14.2 % (11.7-14.2); RDW Standard Deviation 45.5 fL (35.1-46.3); Red Blood Cell Count 3.92 M/mm3 (3.80-5.20); White Blood Cell Count 7.42 K/mm3 (4.00-11.30)
[2021-08-15 01:22] LABS: Magnesium, Blood 1.2 mg/dL (1.6-2.4); Troponin I 0.087 ng/mL (0.000-0.040)
[2021-08-15 01:23] LABS: Alanine Aminotransfer (ALT/SGP 14 U/L (12-78); Albumin, Blood 2.5 g/dL (3.4-5.0); Albumin/Globulin Ratio 0.7 (0.8-1.8); Alk Phos 77 U/L (50-136); Anion Gap 8 mmol/L (6-16); Aspartate Aminotrans (AST/SGOT 13 U/L (12-37); Bilirubin, Total 0.3 mg/dL (0.1-1.0); Blood Urea Nitrogen 12 mg/dL (8-24); Bun/Creatinine Ratio 13.4 (12.0-20.0); CO2, Blood 28 mmol/L (21-32); Calcium, Blood 8.4 mg/dL (8.5-10.1); Chloride, Blood 101 mmol/L (98-108); Creatinine, Blood 0.89 mg/dL (0.40-1.00); Globulin, Blood 3.6 g/dL (2.2-4.0); Glomerular Filtration Rate >60 (60-); Glucose, Blood 173 mg/dL (70-99); Potassium, Blood 2.6 mmol/L (3.5-5.5); Sodium, Blood 137 mmol/L (136-145); Total Protein, Blood 6.1 g/dL (6.4-8.2)
[2021-08-15 01:45] LABS: PCO2 Arterial 44.4 mmHg (35-45); PO2 Arterial 87.4 mmHg (80-100)
[2021-08-15 02:01] LABS: SARS-Cov-2 (COVID-19) PCR, MMC NEGATIVE (NEGATIVE)
--- NOTE | 2021-08-15 03:15 | NUR ---
ARRIVED TO ICU7 FROM SAFETY SITTER PATIENT ARRIVED TO ICU7 FROM SAFETY SITTER POST PCI ON ROOM AIR W/ SPO2 88-93%; 2LPM NC APPLIED W/ SPO2 IMPROVEMENT TO 99-100%. TR BAND TO RT RADIAL ACCESS SITE W/ 13CC AIR PER SAFETY SITTER STAFF. NO BLEEDING OR HEMATOMA PRESENT AT SITE, BUT BRUISING IS PRESENT UNDERNEATH TR BAND THAT HAS BEEN THERE SINCE PROCEDURE PER SAFETY SITTER STAFF. PATIENT IN SR W/ RATE IN 70'S-80'S. SBP ELEVATED 170'S-200'S. PATIENT DENIES CHEST PAIN AT THIS TIME. PATIENT IS HARD OF HEARING, BUT ABLE TO ANSWER AND ASK QUESTIONS APPROPRIATELY. NS INF @ 125ML/HR TO LT FOREARM 20G IV; 20G IV TO LT WRIST.
[2021-08-15 04:07] LABS: BASOPHILS ABSOLUTE AUTO 0.03 K/mm3 (0.00-0.23); BASOPHILS PERCENT AUTO 0 % (0-2); EOSINOPHILS ABSOLUTE AUTO 0.12 K/mm3 (0.00-0.68); EOSINOPHILS PERCENT AUTO 1 % (0-6); Hematocrit 34.1 % (33.0-51.0); Hemoglobin 11.1 g/dL (11.5-16.0); IMMATURE GRAN ABSOLUTE AUTO 0.02 K/mm3 (0.00-0.10); IMMATURE GRAN PERCENT AUTO 0 % (0-1); LYMPHOCYTES ABSOLUTE AUTO 0.84 K/mm3 (0.84-5.20); LYMPHOCYTES PERCENT AUTO 9 % (21-46); MONOCYTES PERCENT AUTO 5 % (4-13); Mean Corpuscular HGB Conc 32.6 g/dL (31.5-36.5); Mean Corpuscular Volume 89 fL (80-100); NEUTROPHILS PERCENT AUTO 84 % (41-73); Platelet Count 246 K/mm3 (150-400); RDW Coefficient Variation 14.2 % (11.7-14.2); RDW Standard Deviation 45.8 fL (35.1-46.3); Red Blood Cell Count 3.83 M/mm3 (3.80-5.20); White Blood Cell Count 9.21 K/mm3 (4.00-11.30)
[2021-08-15 04:25] LABS: Alanine Aminotransfer (ALT/SGP 16 U/L (12-78); Albumin, Blood 2.5 g/dL (3.4-5.0); Albumin/Globulin Ratio 0.7 (0.8-1.8); Alk Phos 72 U/L (50-136); Anion Gap 10 mmol/L (6-16); Aspartate Aminotrans (AST/SGOT 57 U/L (12-37); Bilirubin, Total 0.4 mg/dL (0.1-1.0); Blood Urea Nitrogen 12 mg/dL (8-24); Bun/Creatinine Ratio 14.7 (12.0-20.0); CHOL/HDL RATIO 2.8; CO2, Blood 25 mmol/L (21-32); Calcium, Blood 8.3 mg/dL (8.5-10.1); Chloride, Blood 101 mmol/L (98-108); Cholesterol 141 mg/dL (50-200); Creatinine, Blood 0.82 mg/dL (0.40-1.00); Globulin, Blood 3.6 g/dL (2.2-4.0); Glomerular Filtration Rate >60 (60-); Glucose, Blood 205 mg/dL (70-99); HDL Cholesterol 51 mg/dL (>39); LDL/HDL RATIO 1.5; Low Density Lipoprotein Chol 76 mg/dL (0-110); Potassium, Blood 3.1 mmol/L (3.5-5.5); Sodium, Blood 136 mmol/L (136-145); Total Protein, Blood 6.1 g/dL (6.4-8.2); Triglycerides 69 mg/dL (30-160); Very Low Density Lipoprot Chol 13 mg/dL (6-32)
[2021-08-15 04:37] LABS: Prothrombin Time Results 11.5 Sec (9.7-11.5)
--- NOTE | 2021-08-15 06:38 | NUR ---
SHIFT SUMMARY PATIENT BEGAN HAVING RUNS OF VTACH THIS MORNING; SEE RHYTHM STRIPS. MAG SULFATE AND KCL REPLACEMENTS INFUSING. TR BAND STILL IN PLACE TO LT RADIAL W/ NO BLEEDING OR HEMATOMA PRESENT AT SITE; BRUISING PRESENT UNDER TR BAND THAT HAS REMAINED STABLE. DECREASED DEFLATION SCHEDULE D/T HIGH PTT; 1CC Q 20-30MIN. PATIENT ON 2LPM NC W/ SPO2 REMAINING GREATER THAN 95%. PATIENT REMAINED ORIENTED AND EASILY AROUSABLE FROM SLEEP. PATIENT STILL DENIES CHEST PAIN. NO OTHER MAJOR CHANGES DURING SHIFT.
[2021-08-15 08:10] LABS: Potassium, Blood 3.9 mmol/L (3.5-5.5)
[2021-08-15 08:12] LABS: Troponin I 45.6 ng/mL (0.000-0.040)
[2021-08-15 13:53] LABS: Magnesium, Blood 1.6 mg/dL (1.6-2.4)
[2021-08-15 13:59] LABS: Potassium, Blood 3.2 mmol/L (3.5-5.5); Troponin I 47.1 ng/mL (0.000-0.040)
--- NOTE | 2021-08-15 17:08 | NUR ---
SHIFT SUMMARY: PT CONTINUES A&O T/OUT SHIFT, ABLE TO USE CALL LIGHT APPROPRIATELY. O2 FLOW TITRATED TO ROOM AIR, PT TOLERATES WELL, MAINTAINING O2 SATS >93%. PT CONTINUES IN SR W/PVC AND A FEW RUNS OF VTACH, STRIPS PLACED IN CHART, PT DENIES CHEST PAIN/PRESSURE AND/OR SOB T/OUT THE DAY. PT MEDICATED FOR HTN PER EMAR. R RADIAL TR BAND REMOVED APPROX 1330, TRANSPARENT BANDAGE IN PLACE, BRUISING PATTERN APPEARS UNCHANGED T/OUT SHIFT. PT UP 2x TO RESTROOM W/SBA. PT TOLERATES WELL, NEEDS CONSTANT REMINDING TO NOT USE HER RIGHT ARM SO EXTENSIVELY. PT ADMISSION STATUS HAS BEEN CHANGED TO PCU. NS w/KCL INFUSION CONTINUES W/OUT INCIDENT. WILL CONTINUE TO MONITOR AND TREAT ACCORDINGLY UNTIL CHANGE OF SHIFT.
[2021-08-16 05:34] LABS: BASOPHILS ABSOLUTE AUTO 0.02 K/mm3 (0.00-0.23); BASOPHILS PERCENT AUTO 0 % (0-2); EOSINOPHILS ABSOLUTE AUTO 0.13 K/mm3 (0.00-0.68); EOSINOPHILS PERCENT AUTO 2 % (0-6); Hematocrit 33.8 % (33.0-51.0); Hemoglobin 10.9 g/dL (11.5-16.0); IMMATURE GRAN ABSOLUTE AUTO 0.03 K/mm3 (0.00-0.10); IMMATURE GRAN PERCENT AUTO 0 % (0-1); LYMPHOCYTES ABSOLUTE AUTO 0.98 K/mm3 (0.84-5.20); LYMPHOCYTES PERCENT AUTO 11 % (21-46); MONOCYTES ABSOLUTE AUTO 0.66 K/mm3 (0.16-1.47); MONOCYTES PERCENT AUTO 8 % (4-13); Mean Corpuscular HGB 28.8 pg (26.0-34.0); Mean Corpuscular HGB Conc 32.2 g/dL (31.5-36.5); Mean Corpuscular Volume 89 fL (80-100); NEUTROPHILS PERCENT AUTO 79 % (41-73); Platelet Count 242 K/mm3 (150-400); RDW Coefficient Variation 14.7 % (11.7-14.2); Red Blood Cell Count 3.78 M/mm3 (3.80-5.20); White Blood Cell Count 8.82 K/mm3 (4.00-11.30)
--- NOTE | 2021-08-16 09:30 | NUR ---
AM NOTE ASSUMED CARE OF PATIENT AT APPROX 0700. RIGHT RADIAL SITE WITH FRESH BLOOD UNDER OPSITE, HELD PRESSURE, CLEANED AND REPLACED OPSITE. NO FURTHER BLEEDING NOTED. BRUISING NOTED SURROUNDING INSERTION SITE. PT ALERT, ORIENTED x3; CALM AND COOPERATIVE WITH CARE. [place]. PT REPORTS GENERALIZED TENDERNESS, STATES SHE HAS HAD THIS SINCE A PROCEDURE A COUPLE WEEKS AGO. PT DENIES CHEST PAIN, SOB, NASUEA, DIZZINESS AND NUMBNESS AND TINGLING. SPO2 >90% ON RA, TITRATED FROM 2L O2 THIS AM. PT HAD SHORT RUN OF VTACH ASSYMPTOMATIC, NOTIFIED DR HOLGUIN, NO NEW ORDERS. OTHER VSS. NO OTHER ACUTE CHANGES NOTED. WILL CONTINUE TO MONITOR.
[2021-08-16 11:55] LABS: Anion Gap 4 mmol/L (6-16); Blood Urea Nitrogen 8 mg/dL (8-24); Bun/Creatinine Ratio 11.3 (12.0-20.0); CO2, Blood 24 mmol/L (21-32); Calcium, Blood 8.3 mg/dL (8.5-10.1); Chloride, Blood 107 mmol/L (98-108); Creatinine, Blood 0.71 mg/dL (0.40-1.00); Glomerular Filtration Rate >60 (60-); Glucose, Blood 228 mg/dL (70-99); Magnesium, Blood 1.4 mg/dL (1.6-2.4); Potassium, Blood 3.8 mmol/L (3.5-5.5); Sodium, Blood 135 mmol/L (136-145)
--- NOTE | 2021-08-16 15:33 | NUR ---
DR PATEL AT BEDSIDE NOTIFIED OF VTACH THIS AM AND CONTINUED HTN WITH PRN MEDICATION GIVEN. NEW ORDERED ENTERED. PLANS TO STAY ANOTHER NIGHT AND MONITOR. PER DR PATEL WILL NEED TO FOLLOW UP OUTPATIENT FOR ADDIIONAL PROCEDURE.
--- NOTE | 2021-08-16 17:32 | NUR ---
SHIFT SUMMARY MEDICATED PT WITH NEW DOSE OF COREG, PT HAVING ANOTHER RUN OF VTACH. ELEVATED BP NOTED. WILL CONTINUE TO MONITOR. OTHER VSS. UP TO CHAIR THIS AFTERNOON. RIGHT RADIAL SITE DRESSING CHANGED AGAIN. NO OTHER ACUTE CHANGES NOTED FROM PREVOUS ASSESSMENT. WILL CONTINUE TO MONITOR UNTIL REPORT GIVEN TO ONCOMING RN.
--- NOTE | 2021-08-17 02:32 | NUR ---
CHEST PAIN PT CALLED COMPLAINING OF SHARP AND INTENSE CHEST PAIN. RATED 10/10, NOT GOING AWAY, AT WHICH TIME PT WAS IN AND OUT OF VTACH, SINUS TACH WITH PAC'S/PVC'S. PRN FENTANYL GIVEN, AND EKG DONE RESULTING EXPLAINED ABOVE. HOSPITALIST CALLED, BUT INSTRUCTED TO NOTIFY MUSIC HISTORIAN. RN CALLED CARDIOLOGY, MD PATEL FAMILIAR WITH PATIENT AND SUGGESTED PT MAY NEED TO BE PLACED ON NITRO GTT AND PLACED IN ICU. MD NOTED HE WAS ENTERING ANOTHER URGENT CASE AND WOULD COME ASSESS PATIENT AFTERWARD. PT KEPT COMFORTABLE AND RESTING. REASSESSED PT PAIN AFTER FENTANYL, PT SAID PAIN IS COMPLETELY GONE. WILL KEEP MONITORING PATIENT CLOSELY AND UPDATE MD WHEN HE MAKES HIS ROUND BY. VSS HR 99, RR 17, BP 174/68, O2 93% 2LNC.
--- NOTE | 2021-08-17 03:24 | NUR ---
AFIB RVR PT CALLED STATING HTEY NEEDED TO USE RESTROOM, RN NOTED HR IN 120'S, AND QUICKLY INCREASING TO 170'S. RN CALLED HOSPITALIST AND GOT ONE TIME ORDER FOR METOPROLOL 5MG IV. NOTED THAT HR CHANGED FROM SINUS TACH TO AFIB RVR, ONCE ADMINISTERED HR NOTED TO COME DOWN TO 113'S, AND THEN CONVERTED BACK TO SINUS RHYTHM/SINUS TACH. NOW HR SINUS 96, BP 174/75.
[2021-08-17 04:05] LABS: BASOPHILS ABSOLUTE AUTO 0.02 K/mm3 (0.00-0.23); BASOPHILS PERCENT AUTO 0 % (0-2); EOSINOPHILS ABSOLUTE AUTO 0.25 K/mm3 (0.00-0.68); EOSINOPHILS PERCENT AUTO 2 % (0-6); Hematocrit 35.3 % (33.0-51.0); Hemoglobin 11.6 g/dL (11.5-16.0); IMMATURE GRAN ABSOLUTE AUTO 0.05 K/mm3 (0.00-0.10); IMMATURE GRAN PERCENT AUTO 1 % (0-1); LYMPHOCYTES ABSOLUTE AUTO 1.11 K/mm3 (0.84-5.20); LYMPHOCYTES PERCENT AUTO 11 % (21-46); MONOCYTES ABSOLUTE AUTO 0.96 K/mm3 (0.16-1.47); MONOCYTES PERCENT AUTO 9 % (4-13); Mean Corpuscular HGB 29.1 pg (26.0-34.0); Mean Corpuscular HGB Conc 32.9 g/dL (31.5-36.5); Mean Corpuscular Volume 89 fL (80-100); NEUTROPHILS ABSOLUTE AUTO 7.93 K/mm3 (1.96-9.15); NEUTROPHILS PERCENT AUTO 77 % (41-73); Platelet Count 270 K/mm3 (150-400); RDW Standard Deviation 48.4 fL (35.1-46.3); Red Blood Cell Count 3.99 M/mm3 (3.80-5.20); White Blood Cell Count 10.32 K/mm3 (4.00-11.30)
[2021-08-17 04:25] LABS: Anion Gap 8 mmol/L (6-16); Blood Urea Nitrogen 7 mg/dL (8-24); Bun/Creatinine Ratio 11.2 (12.0-20.0); CO2, Blood 20 mmol/L (21-32); Chloride, Blood 109 mmol/L (98-108); Creatinine, Blood 0.63 mg/dL (0.40-1.00); Glomerular Filtration Rate >60 (60-); Glucose, Blood 226 mg/dL (70-99); Magnesium, Blood 1.7 mg/dL (1.6-2.4); Sodium, Blood 137 mmol/L (136-145)
--- NOTE | 2021-08-17 05:19 | NUR ---
DR. PATEL AT NURSING STATION FOR UPDATE ON PATIENT; REPORTS SHE IS NOT GOING HOME BUT WILL NEED TO BE TRANSFERRED TO A HIGHER LEVEL OF CARE OUTSIDE OF THE HOSPITAL; REQUESTED EKG NOW.
--- NOTE | 2021-08-17 06:30 | NUR ---
shift summary pt rested well through the night. alert and oriented, able to make needs knwon. cooperative with plan of care. sats >90% on 2lnc. tele now reading nsr/sinus tach. bp improved. voiding to bedside commode. r radial site had some drainage, not yayo blood, but minimal saturation on bandage. replaced and pressure applied, no bleeding since. chest pain improved significantly per patient - rates pain 0/10. vss. md bridger to room and put in orders for a cobra transfer patient in regards to valve repair. call light within reach, bed in lowest position. will conitnue to monitor.
[2021-08-17 10:55] LABS: Anion Gap 7 mmol/L (6-16); Blood Urea Nitrogen 7 mg/dL (8-24); Bun/Creatinine Ratio 10.4 (12.0-20.0); CO2, Blood 23 mmol/L (21-32); CPK Creatine Kinase 131 U/L (26-193); Calcium, Blood 8.3 mg/dL (8.5-10.1); Chloride, Blood 106 mmol/L (98-108); Creatinine, Blood 0.67 mg/dL (0.40-1.00); Glomerular Filtration Rate >60 (60-); Glucose, Blood 272 mg/dL (70-99); Potassium, Blood 4.1 mmol/L (3.5-5.5); Sodium, Blood 136 mmol/L (136-145)
--- NOTE | 2021-08-17 17:39 | NUR ---
SHIFT SUMMARY; ASSUMED CARE AT 0700, A/A/OX4. DENIES CHEST PAIN OR SOB. RA AT THIS TIME WITH SATS MAINTAING 95%. COBRA TRANSFER DISCUSSED WITH PT BY LICENSE DISTRIBUTOR. RIGHT RADIAL SITE CLEAN DRY AND INTACT WITH NO BRUISING OR SWELLING. BILATERAL HAND SWELLING, BILATERAL BRUISING TO HANDS AND ARMS. PT STATES UNSURE WHERE BRUISING CAME FROM, DENIES INJURY. REMAINED PAIN FREE THROUGHOUT SHIFT. HYDRALIZINE GIVEN IV FOR HYPERTENSION. INTERMITANT 15SEC RUNS OF VTACH DURING SHIFT. LICENSE DISTRIBUTOR AWARE. LEONEL ACCEPTED TRANSFER IN AFTERNOON, REPORT GIVEN TO JOSI FLORES TO ASSUME CARE.
== END 2021-08-17 18:01 | disposition short-term general hospital (02) | DRG 251 ==
LOC: ER 00:29 → ICUE 00:39 → ICUW 00:39 → PCU 00:39 → ICUE 03:06 → PCU 08-16 00:48
PROVIDERS: Family Medicine; Internal Medicine; Student in an Organized Health Care Education/Training Program; ADMIT Internal Medicine Cardiovascular Disease
PROC: 02703ZZ Dilation of Coronary Artery, One Artery, Percutaneous Approach (ICD-10-PCS; principal; 2021-08-15)
PROC: 4A023N6 Measurement of Cardiac Sampling and Pressure, Right Heart, Percutaneous Approach (ICD-10-PCS; 2021-08-15)
PROC: B2111ZZ Fluoroscopy of Multiple Coronary Arteries using Low Osmolar Contrast (ICD-10-PCS; 2021-08-15)
DX: I21.19 ST elevation (STEMI) myocardial infarction involving other coronary artery of inferior wall (principal); I13.0 Hypertensive heart and chronic kidney disease with heart failure and stage 1 through stage 4 chronic kidney disease, or unspecified chronic kidney disease; I47.2 Ventricular tachycardia; I97.190 Other postprocedural cardiac functional disturbances following cardiac surgery; T82.867A Thrombosis due to cardiac prosthetic devices, implants and grafts, initial encounter; E11.22 Type 2 diabetes mellitus with diabetic chronic kidney disease; I50.9 Heart failure, unspecified; H91.90 Unspecified hearing loss, unspecified ear; Z20.822 Contact with and (suspected) exposure to COVID-19; I48.0 Paroxysmal atrial fibrillation; I25.10 Atherosclerotic heart disease of native coronary artery without angina pectoris; E11.51 Type 2 diabetes mellitus with diabetic peripheral angiopathy without gangrene; I21.A9 Other myocardial infarction type; I70.1 Atherosclerosis of renal artery; Z98.890 Other specified postprocedural states; Z88.5 Allergy status to narcotic agent; Z88.8 Allergy status to other drugs, medicaments and biological substances; Z86.73 Personal history of transient ischemic attack (TIA), and cerebral infarction without residual deficits; Z95.5 Presence of coronary angioplasty implant and graft; Z79.02 Long term (current) use of antithrombotics/antiplatelets; Z79.82 Long term (current) use of aspirin; Z79.4 Long term (current) use of insulin; Z79.899 Other long term (current) drug therapy; Z92.3 Personal history of irradiation
CPT/HCPCS: 36415; 71045; 71046; 80047; 80048; 80053; 80061; 82550; 82803; 82947; 83735; 83880; 84132; 84484; 85014; 85025; 85027; 85347; 85610; 85730; 86850; 86900; 86901; 92941; 93005; 93010; 93306; 93458; 93880; 94640; 94664; 94760; 96374-59; 96375-59; 99152; 99153; 99285-25; A9270; C1725; C1769; C1887; C1894; J0360; J0461; J1170; J1200; J1644; J1650; J1815; J2250; J2405; J3010; J3475; J3480; J7030; J7050; Q9967; U0004

== ENCOUNTER 2021-08-29 11:54 | Emergency (ER) | payer OTHER ==
[~2021-08-29] VITALS: Ht 165.1 cm; Wt 74.8 kg
[2021-08-29 12:30] LABS: BASOPHILS ABSOLUTE AUTO 0.04 K/mm3 (0.00-0.23); BASOPHILS PERCENT AUTO 1 % (0-2); EOSINOPHILS PERCENT AUTO 6 % (0-6); Hematocrit 28.5 % (33.0-51.0); Hemoglobin 9.1 g/dL (11.5-16.0); IMMATURE GRAN ABSOLUTE AUTO 0.05 K/mm3 (0.00-0.10); IMMATURE GRAN PERCENT AUTO 1 % (0-1); LYMPHOCYTES ABSOLUTE AUTO 1.13 K/mm3 (0.84-5.20); LYMPHOCYTES PERCENT AUTO 14 % (21-46); MONOCYTES ABSOLUTE AUTO 0.85 K/mm3 (0.16-1.47); MONOCYTES PERCENT AUTO 10 % (4-13); Mean Corpuscular HGB 29.2 pg (26.0-34.0); Mean Corpuscular HGB Conc 31.9 g/dL (31.5-36.5); Mean Corpuscular Volume 91 fL (80-100); Mean Platelet Volume 10.3 fL (9.1-12.4); NEUTROPHILS ABSOLUTE AUTO 5.77 K/mm3 (1.96-9.15); NEUTROPHILS PERCENT AUTO 69 % (41-73); Platelet Count 351 K/mm3 (150-400); RDW Coefficient Variation 15.7 % (11.7-14.2); RDW Standard Deviation 50.8 fL (35.1-46.3); Red Blood Cell Count 3.12 M/mm3 (3.80-5.20); White Blood Cell Count 8.34 K/mm3 (4.00-11.30)
[2021-08-29 12:53] LABS: Alanine Aminotransfer (ALT/SGP 20 U/L (12-78); Albumin, Blood 2.2 g/dL (3.4-5.0); Albumin/Globulin Ratio 0.6 (0.8-1.8); Alk Phos 102 U/L (50-136); Anion Gap 6 mmol/L (6-16); Aspartate Aminotrans (AST/SGOT 27 U/L (12-37); Bilirubin, Total 0.2 mg/dL (0.1-1.0); Blood Urea Nitrogen 12 mg/dL (8-24); Bun/Creatinine Ratio 17.6 (12.0-20.0); CO2, Blood 29 mmol/L (21-32); Calcium, Blood 8.1 mg/dL (8.5-10.1); Chloride, Blood 100 mmol/L (98-108); Creatinine, Blood 0.68 mg/dL (0.40-1.00); Globulin, Blood 3.7 g/dL (2.2-4.0); Glomerular Filtration Rate >60 (60-); Glucose, Blood 206 mg/dL (70-99); Potassium, Blood 3.2 mmol/L (3.5-5.5); Sodium, Blood 135 mmol/L (136-145); Total Protein, Blood 5.9 g/dL (6.4-8.2); Troponin I 0.099 ng/mL (0.000-0.040)
[2021-08-29 13:55] LABS: SARS-Cov-2 (COVID-19) PCR, MMC NEGATIVE (NEGATIVE)
== END 2021-08-29 14:39 | disposition home or self-care (01) ==
LOC: ER 11:54
PROVIDERS: Emergency Medicine
DX: I48.0 Paroxysmal atrial fibrillation (principal); I11.0 Hypertensive heart disease with heart failure; I50.9 Heart failure, unspecified; E11.9 Type 2 diabetes mellitus without complications; Z88.8 Allergy status to other drugs, medicaments and biological substances; Z88.5 Allergy status to narcotic agent; Z79.899 Other long term (current) drug therapy; Z79.4 Long term (current) use of insulin; Z79.82 Long term (current) use of aspirin; Z79.84 Long term (current) use of oral hypoglycemic drugs; Z20.822 Contact with and (suspected) exposure to COVID-19
CPT/HCPCS: 71045; 80053; 84484; 85025; 93005; 93010; 96365; 96376; 99285-25; U0004

== ENCOUNTER 2021-12-27 13:40 | Emergency (ER) | payer OTHER ==
[~2021-12-27] VITALS: Ht 165.1 cm; Wt 83.9 kg
[~2021-12-27 13:40] MED LIST changes: +ASCO500 PO; +ATOR40TA PO; +B-12500 MC2 PO; +CARV25 PO; +DILT180 PO; +FERROUS GLUCON324 M2 PO; +FOLI1 PO; +POTA10T PO
[2021-12-27 14:01] LABS: BASOPHILS ABSOLUTE AUTO 0.03 K/mm3 (0.00-0.23); BASOPHILS PERCENT AUTO 0 % (0-2); EOSINOPHILS PERCENT AUTO 5 % (0-6); Hematocrit 33.4 % (33.0-51.0); IMMATURE GRAN ABSOLUTE AUTO 0.04 K/mm3 (0.00-0.10); IMMATURE GRAN PERCENT AUTO 0 % (0-1); LYMPHOCYTES ABSOLUTE AUTO 1.33 K/mm3 (0.84-5.20); LYMPHOCYTES PERCENT AUTO 13 % (21-46); MONOCYTES ABSOLUTE AUTO 0.85 K/mm3 (0.16-1.47); MONOCYTES PERCENT AUTO 9 % (4-13); Mean Corpuscular HGB 28.6 pg (26.0-34.0); Mean Corpuscular HGB Conc 32.9 g/dL (31.5-36.5); Mean Corpuscular Volume 87 fL (80-100); Mean Platelet Volume 9.6 fL (9.1-12.4); NEUTROPHILS ABSOLUTE AUTO 7.27 K/mm3 (1.96-9.15); NEUTROPHILS PERCENT AUTO 73 % (41-73); Platelet Count 282 K/mm3 (150-400); RDW Coefficient Variation 14.8 % (11.7-14.2); RDW Standard Deviation 46.9 fL (35.1-46.3); Red Blood Cell Count 3.84 M/mm3 (3.80-5.20); White Blood Cell Count 10.02 K/mm3 (4.00-11.30)
[2021-12-27 14:16] LABS: Alanine Aminotransfer (ALT/SGP 20 U/L (12-78); Albumin/Globulin Ratio 0.7 (0.8-1.8); Alk Phos 133 U/L (50-136); Anion Gap 9 mmol/L (6-16); Aspartate Aminotrans (AST/SGOT 12 U/L (12-37); Bilirubin, Total 0.5 mg/dL (0.1-1.0); Blood Urea Nitrogen 27 mg/dL (8-24); Bun/Creatinine Ratio 29.3 (12.0-20.0); CO2, Blood 26 mmol/L (21-32); Chloride, Blood 96 mmol/L (98-108); Creatinine, Blood 0.92 mg/dL (0.40-1.00); Ethanol (Alcohol), Blood, Med <3 mg/dL; Globulin, Blood 4.1 g/dL (2.2-4.0); Glomerular Filtration Rate 58 (60-); Glucose, Blood 249 mg/dL (70-99); Potassium, Blood 4.2 mmol/L (3.5-5.5); Sodium, Blood 131 mmol/L (136-145); Total Protein, Blood 7.1 g/dL (6.4-8.2)
[2021-12-27 14:40] LABS: International Normalized Ratio 1.04; Prothrombin Time Results 10.9 Sec (9.7-11.5)
[2021-12-27 16:15] LABS: Source, Urine Foley catheter
[2021-12-27] MEDS ORDERED: FURO40 PO (16:17)
[2021-12-27 16:18] LABS: Influenza A, PCR NEGATIVE (NEGATIVE); Influenza B, PCR NEGATIVE (NEGATIVE); Resp Syncytial Virus, PCR NEGATIVE (NEGATIVE); SARS-Cov-2 (COVID-19) PCR, MMC NEGATIVE (NEGATIVE)
[2021-12-27] MEDS ORDERED: DILTIAZEM 24HR180 M5 PO (16:18)
[2021-12-27] MEDS ORDERED: POTA10T PO (16:19)
[2021-12-27] MEDS ORDERED: BASAGLAR K100 UNIT/3 SC (16:21)
[2021-12-27 16:22] LABS: Bilirubin, Urine Neg (Neg); Blood, Urine Neg (Neg); Glucose Qualitative, Urine 2+ (Neg); Ketones, Urine Neg (Neg); Leukocyte Esterase, Urine Neg (Neg); Nitrite, Urine Neg (Neg); Protein, Urine 3+ (Neg); Urobilinogen, Urine NORM (Normal)
[2021-12-27 16:32] LABS: Appearance, Urine Clear (Clear); Color, Urine Pale Yellow (P-Yellow)
[2021-12-27 16:33] LABS: Bacteria Rare /hpf; Red Blood Cells, Urine 0-2 /hpf (0-2); Squamous Epithelial Cells Rare /hpf (Few); White Blood Cells, Urine 0-2 /hpf (0-5)
[2021-12-27 16:34] LABS: U Amphetamine Screen Not Detected; U Barbituate Screen Not Detected; U Benzodiazapine Screen Not Detected; U Buprenorphine Screen Not Detected; U Cannabinoids Screen Not Detected; U Cocaine Screen Not Detected; U Methadone Screen Not Detected; U Methamphetamine Screen Not Detected; U Opiates Screen Not Detected; U Oxycodone Screen Not Detected; U Phencyclidine Screen Not Detected; U Propoxyphene Screen Not Detected
== END 2021-12-27 16:42 | disposition short-term general hospital (02) ==
LOC: ER 13:40
PROVIDERS: Emergency Medicine
DX: I63.9 Cerebral infarction, unspecified (principal); G81.91 Hemiplegia, unspecified affecting right dominant side; E11.65 Type 2 diabetes mellitus with hyperglycemia; I11.0 Hypertensive heart disease with heart failure; I50.9 Heart failure, unspecified; I25.10 Atherosclerotic heart disease of native coronary artery without angina pectoris; Z79.82 Long term (current) use of aspirin; Z79.4 Long term (current) use of insulin; Z79.899 Other long term (current) drug therapy; Z87.891 Personal history of nicotine dependence; Z88.5 Allergy status to narcotic agent; Z88.8 Allergy status to other drugs, medicaments and biological substances
CPT/HCPCS: 0241U; 36415; 51702; 70450; 70496; 70498; 71045; 80053; 81001; 82947; 85025; 85610; 85730; 93005; 93010; 96374; 96375; 96376; 99285-25; G0480; J3101; Q9967